=== PATIENT | female | born 1980 | race Caucasian/White ===

== ENCOUNTER 2024-10-13 14:13 | Emergency (ER) | payer BC, OTHER ==
--- OUTSIDE RECORDS SUMMARY | 2024-10-13 14:17 | XMS REPORT | Continuity of Care Document ---
Author Name Unknown Address [address] [facility] [address] [place] [address] [facility] thconnect Address [address] [facility] [place] [address] Care Team Providers Care International Manager Name Role Phone PAUL DE LA CRUZ Primary Care Physician Unavailab NETTA Garcia Attending Clinician Unavailable NETTA DAMON Attending Clinician Unavailable LEANDRA PRECIADO Attending Clinician Unavailable LEANDRA PRECIADO Attending Clinician Unavailable PAUL DE LA CRUZ Attending Clinician Unavailable Leyla ARCHER Attending Clinician Unavailable Leyla ARCHER Attending Clinician Unavailable Leyla Bird Attending Clinician [phone] KEYANA ELDRIDGE Attending Clinician Unavailable Nurse, [facility] Attending Clinician Un available Unknown, Attending Attending Clinician Unavailab Keyana Holm MD Attending Clinician [phone] DEMI QUIROZ Attending Clinician Unavailable Demi Quiroz PA-C Attending Clinician Unknown, Attending Attending Clinician Unavailab LASHONDA Mcqueen Attending Clinician Unavailable 2, [facility] Attending Clinician Unavailable Lashonda Galarza MD Attending Clinician [phone] Doctor Unassigned, [place] Attending Clinician U navailable [email or web address] Attending Clinician UnavailILA Lombardo Attending Clinician UnavailLUIS A Garcia Attending Clinician Unavailable Mandie Stewart MA Attending Clinician Unavailabl e LAB90 Attending Clinician Unavailable USAMA VELASQUEZ Attending Clinician Unavailcandi e [email or web address] Admitting Clinician UnavailLEANDRA Lara Admitting Clinician Unavailable Payers Payer Name Policy Type Policy Number Effective Date Expirati on Date Source [facility] [id number] 2024 00:00:00 [facility] [id number] 2024 00:00:00 [facility] [id number] 2023 00:00:00 BC[employer] 2 [id number] 2022 00:00:00 Problems Condition Name Condition Details Condition Category Status Onset Date Resolution Date Last Treatment Date Treating Clinician Comments Source ADHD (attention deficit hyperactiv ity disorder), combined type ADHD (attention deficit hyperactiv ity disorder), combined type Disease Active 2022-08 00:00: 00 [facility] Generalize d anxiety disorder Generalize d anxiety disorder Disease Active 2022-08 00:00: 00 [facility] 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) Disease Active 2022-08 00:00: 00 [facility] Adjustment insomnia Adjustment insomnia Disease Active 2022-08 00:00: 00 [facility] Bilateral lower extremity edema Bilateral lower extremity edema Disease Active 01-23 00:00: 00 [facility] BMI 40.0-44.9, adult BMI 40.0-44.9, adult Disease Active 01-23 00:00: 00 [facility] Family history of cardiac disorder in father Family history of cardiac disorder in father Disease Active 01-23 00:00: 00 [facility] Primary hypertensi on Primary hypertensi on Disease Active 01-23 00:00: 00 [facility] Urinary incontinen ce, unspecifie d type Urinary incontinen ce, unspecifie d type Disease Active 04-01 00:00: 00 [facility] Perimenopa usal vasomotor symptoms Perimenopa usal vasomotor symptoms Disease Active 04-01 00:00: 00 [facility] Dysmenorrh ea Dysmenorrh ea Disease Active 04-01 00:00: 00 [facility] Allergies, Adverse Reactions, Alerts Allergy Name Allergy Type Status Severity Reaction(s) Onset Date Inactive Date Treating Clinician Comments Source Predniso ne Propensi ty to adverse reaction s to drug Active 01-20 00:00: 00 ORAL STEROIDS ONLY, SKIN CRAWLING, COLD AND HOT, ANXIOUS INJECTABL ES ARE FINE Ashley Kay - Externa l PREDNISO NE DRUG INGREDI Active Med Unknown-Cmnt 01-20 00:00: 00 [facility] Predniso ne Propensi ty to adverse reaction s Active Unknown - See comments 01-20 00:00: 00 ORAL STEROIDS ONLY, SKIN CRAWLING, COLD AND HOT, ANXIOUS INJECTABL ES ARE FINE [facility] NO KNOWN ALLERGIE S Drug Class Active [facility] Social History Social Habit Start Date Stop Date Quantity Comments Source History SDOH Alcohol Frequency [facility] History SDOH Alcohol Std Drinks [facility] History SDOH Alcohol Binge [facility] Gender identity [facility] Alcoholic beverage intake 2024-05-01 00:00:00 2024-05-01 00:00:00 Current drinker of alcohol (finding) [facility] History of Social function 2024-05-01 00:00:00 2024-05-01 00:00:00 [facility] Tobacco use and exposure 2024-02-27 00:00:00 2024-02-27 00:00:00 Smokeless tobacco non-user [facility] Alcohol intake 2023-07-20 00:00:00 2023-07-20 00:00:00 Current drinker of alcohol (finding) Ashley Bailey External Tobacco Comment 2023-01-20 00:00:00 2023-01-20 00:00:00 Smoked during college. No longer Ashley Bailey External Alcohol Comment 2023-01-20 00:00:00 2023-01-20 00:00:00 socially Ashley Bailey External Exposure to SARS-CoV-2 (event) 2022-03-22 00:00:00 2022-04-01 08:33:00 Not sure [facility] History of tobacco use 2003-08-14 00:00:00 Cigarette Smoker [facility] Sex Assigned At 1980 00:00:00 1980 00:00:00 Ashley Kay - External Smoking Status Start Date Stop Date Source Ex-smoker 2024-02-27 00:00:00 2024-02-27 00:00:00 [facility] Medications Ordered Medication Name Filled Medication Name Start Date Stop Date Current Medication? Ordering Clinician Indication Dosage Frequency Signature (SIG) Comments Components Source dextroamphe tamine-amph etamine (MYDAYIS) 25 mg CT24 05-01 17:55: 21 Yes Take by mouth. [facility] chlorhexidi ne (PERIDEX) 0.12 % mouthwash 05-01 00:00: 00 Yes [id number] 15mL Swish and spit out 15 mL in the morning and 15 mL in the evening. [facility] amoxicillin -clavulanat e (AUGMENTIN) 875-125 mg per tablet 02-26 00:00: 00 03-06 04:59 :00 No [id number] 09004 1{tbl} Take 1 tablet by mouth in the morning and 1 tablet in the evening. Do all this for 7 days. [facility] fluconazole (DIFLUCAN) 150 mg tablet 02-26 00:00: 00 02-27 04:59 :00 No [id number] 150mg Take 1 tablet by mouth once now for 1 dose. [facility] methylpheni date HCl (CONCERTA) 18 mg 24 hr tablet 2022-08-15 00:00: 00 Yes [id number] 18mg Take 1 tablet by mouth every morning. [facility] busPIRone 5 mg tablet 2022-08 2-14 00:00: 00 Yes [id number] 5mg Take 1 tablet by mouth in the morning and 1 tablet in the evening. [facility] MOUNJARO 12.5 mg/0.5 mL PnIj 2022-08 2-05 00:00: 00 Yes 12.5mg inject 12.5 mg under the skin weekly. [facility] Oseltamivir Phosphate 75 MG oral Capsule 2022-08 1-10 00:00: 00 07-20 00:00 :00 No 75mg Take 1 capsule (75 mg total) by mouth 2 times daily. Ashley reynaga Mounjaro 10 MG/0.5ML subcutaneou s Solution Pen-injecto r 2022-08 1-03 00:00: 00 07-20 00:00 :00 No INJECT 1 INJECTION INTO THE SKIN ONCE A WEEK FOR 4 WEEKS Ashley reynaga hydroCHLORO thiazide 50 mg tablet 2022-08 005 00:00: 00 Yes 50mg Take 1 tablet by mouth in the morning. [facility] MOUNJARO 7.5 mg/0.5 mL PnIj 9-14 00:00: 00 07-27 00:00 :00 No [facility] Mounjaro 5 MG/0.5ML subcutaneou s Solution Pen-injecto r 8-23 00:00: 00 07-20 00:00 :00 No Ashley reynaga hydroCHLORO thiazide 50 MG oral Tablet 8-22 00:00: 00 05-18 00:00 :00 No [id number] 50mg Take 1 tablet (50 mg total) by mouth daily. Ashley reynaga hydroCHLORO thiazide 50 mg tablet 8-11 00:00: 00 07-27 00:00 :00 No 50mg Take 1 tablet by mouth. [facility] hydroCHLORO thiazide 25 MG oral Tablet 8- 00:00: 00 03-24 00:00 :00 No [id number] 25mg TAKE 1 TABLET (25 MG TOTAL) BY MOUTH DAILY. Ashley reynaga Promethazin e-DM 6.25-15 MG/5ML oral Syrup 7-20 00:00: 00 07-20 00:00 :00 No 5mL Q.25D Take 5 mL by mouth every 6 hours as needed. Ashley reynaga hydroCHLORO thiazide 25 MG oral Tablet 02-21 00:00: 00 Yes [id number] 50mg Take 2 tablets (50 mg total) by mouth daily Ashley reynaga Tirzepatide (Mounjaro) 2.5 MG/0.5ML subcutaneou s Solution Pen-injecto r 02-21 00:00: 00 Yes [id number] 2.5mg Inject 0.5 mL (2.5 mg total) into the skin once a week Ashley reynaga OZEMPIC (0.25 or 0.5 mg/dose) 2 mg/3 mL SQ Solution Pen-Injecto r 02-21 00:00: 00 02-21 00:00 :00 No [id number] .25mg Inject 0.25 mg into the skin once a week Ashley reynaga hydroCHLORO thiazide 25 MG oral Tablet 02-17 00:00: 00 02-21 00:00 :00 No [id number] 25mg TAKE 1 TABLET (25 MG TOTAL) BY MOUTH DAILY. Ashley reynaga hydroCHLORO thiazide 25 MG oral Tablet 01-23 00:00: 00 Yes [id number] 25mg Take 1 tablet (25 mg total) by mouth daily Ashley reynaga hydroCHLORO thiazide 12.5 MG oral Capsule 12-13 00:00: 00 01-23 00:00 :00 No 12.5mg Take 1 capsule (12.5 mg total) by mouth daily Ashley reynaga Triamcinolo ne Acetonide 0.1 % apply externally Lotion 12-13 00:00: 00 01-23 00:00 :00 No APPLY (TOPICAL) 2 TIMES PER DAY Aslhey reynaga Valacyclovi r HCl 1 g oral Tablet 12-13 00:00: 00 01-23 00:00 :00 No TAKE 1 TABLET BY MOUTH THREE TIMES A DAY FOR 7 DAYS Ashley Kay - Daniela l ondansetron 4 mg tablet 12-09 00:00: 00 04-01 00:00 :00 No TAKE 1-2 TABLETS BY MOUTH EVERY 8 HOURS [facility] oseltamivir 75 mg capsule 12-09 00:00: 00 04-01 00:00 :00 No 75mg Take 75 mg by mouth 2 (two) times daily. [facility] spironolact one-hydroch lorothiazid e 25-25 mg per tablet 4-11 00:00: 00 07-27 00:00 :00 No TAKE 1 TABLET BY MOUTH EVERY MORNING FOR 30 DAYS [facility] fluticasone propionate 50 mcg/actuati on nasal spray 10-19 00:00: 00 Yes 2 SPRAYS EACH SIDE DAILY FOR NASAL DRAINAGE AND ALLERGIES [facility] Immunizations Ordered Immunization Name Filled Immunization Name Date Status Comments Source SARS-COV-2 COVID-19 MODERNA 12+ YRS VACCINE 2020-11-11 00:00:00 Completed [facility] SARS-COV-2 COVID-19 MODERNA 12+ YRS VACCINE 2020-11-11 00:00:00 Completed [facility] SARS-COV-2 COVID-19 MODERNA 12+ YRS VACCINE 2020-11-11 00:00:00 Completed [facility] SARS-COV-2 COVID-19 MODERNA VACCINE 2020-11-11 00:00:00 Completed [facility] SARS-COV-2 COVID-19 MODERNA 12+ YRS VACCINE 2020-10-14 00:00:00 Completed [facility] SARS-COV-2 COVID-19 MODERNA 12+ YRS VACCINE 2020-10-14 00:00:00 Completed [facility] SARS-COV-2 COVID-19 MODERNA VACCINE 2020-10-14 00:00:00 Completed [facility] SARS-COV-2 COVID-19 MODERNA 12+ YRS VACCINE 2020-10-14 00:00:00 Completed [facility] SARS-COV-2 COVID-19 MODERNA 12+ YRS VACCINE Unknown Completed [facility] SARS-COV-2 COVID-19 MODERNA 12+ YRS VACCINE Unknown Completed [facility] SARS-COV-2 COVID-19 MODERNA 12+ YRS VACCINE Unknown Completed [facility] SARS-COV-2 COVID-19 MODERNA 12+ YRS VACCINE Unknown Completed [facility] SARS-COV-2 COVID-19 MODERNA 12+ YRS VACCINE Unknown Completed [facility] SARS-COV-2 COVID-19 MODERNA 12+ YRS VACCINE Unknown Completed [facility] SARS-COV-2 COVID-19 MODERNA 12+ YRS VACCINE Unknown Completed [facility] SARS-COV-2 COVID-19 MODERNA 12+ YRS VACCINE Unknown Completed [facility] Vital Signs Vital Name Observation Time Observation Value Comments S ource Systolic blood pressure 2024-05-01 23:41:00 133 mm[Hg] [facility] Diastolic blood pressure 2024-05-01 23:41:00 94 mm[Hg] [facility] Heart rate 2024-05-01 23:41:00 87 /min [facility] Body temperature 2024-05-01 23:41:00 37.5 Shikha [facility] Respiratory rate 2024-05-01 23:41:00 16 /min [facility] Body height 2024-05-01 23:41:00 160 cm [facility] Body weight 2024-05-01 23:41:00 68.493 kg [facility] BMI 2024-05-01 23:41:00 26.75 kg/m2 [facility] Oxygen saturation in Arterial blood by Pulse oximetry 2024-05-01 23:41:00 100 /min [facility] Systolic blood pressure 2024-05-01 22:45:00 123 mm[Hg] [facility] Diastolic blood pressure 2024-05-01 22:45:00 86 mm[Hg] [facility] Heart rate 2024-05-01 22:45:00 84 /min [facility] Body temperature 2024-05-01 22:45:00 36.89 Shikha [facility] Respiratory rate 2024-05-01 22:45:00 19 /min [facility] Body height 2024-05-01 22:45:00 160 cm [facility] Body weight 2024-05-01 22:45:00 70.761 kg [facility] BMI 2024-05-01 22:45:00 27.63 kg/m2 [facility] Oxygen saturation in Arterial blood by Pulse oximetry 2024-05-01 22:45:00 100 /min [facility] Systolic blood pressure 2024-02-27 19:28:00 132 mm[Hg] [facility] Diastolic blood pressure 2024-02-27 19:28:00 79 mm[Hg] [facility] Heart rate 2024-02-27 19:28:00 81 /min [facility] Body temperature 2024-02-27 19:28:00 37.06 Shikha [facility] Respiratory rate 2024-02-27 19:28:00 17 /min [facility] Body weight 2024-02-27 19:28:00 71.215 kg [facility] BMI 2024-02-27 19:28:00 27.81 kg/m2 [facility] Oxygen saturation in Arterial blood by Pulse oximetry 2024-02-27 19:28:00 96 /min [facility] Systolic blood pressure 2023-07-27 14:24:00 122 mm[Hg] [facility] Diastolic blood pressure 2023-07-27 14:24:00 86 mm[Hg] [facility] Heart rate 2023-07-27 14:24:00 76 /min [facility] Body temperature 2023-07-27 14:24:00 36 Shikha [facility] Body height 2023-07-27 14:24:00 160 cm [facility] weight 2023-07-27 14:24:00 90.357 kg [facility] BMI 2023-07-27 14:24:00 35.29 kg/m2 [facility] Oxygen saturation in Arterial blood by Pulse oximetry 2023-07-27 14:24:00 99 /min [facility] Systolic blood pressure 2023-07-20 14:35:00 112 mm[Hg] Ashley Seybo ld - External Diastolic blood pressure 2023-07-20 14:35:00 82 mm[Hg] Ashley Seybo ld - External Heart rate 2023-07-20 14:35:00 83 /min Kelse y Seybold - External Body temperature 2023-07-20 14:35:00 36.5 Shikha Ashley Seybold - External Respiratory rate 2023-07-20 14:35:00 14 /min Ashley Seybold - External Body height 2023-07-20 14:35:00 154.9 cm Elli ey Seybold - External Body weight 2023-07-20 14:35:00 92.987 kg Elli ey Seybold - External BMI 2023-07-20 14:35:00 38.73 kg/m2 Elli ey Seybold - External Systolic blood pressure 2023-05-26 18:14:00 138 mm[Hg] [facility] Diastolic blood pressure 2023-05-26 18:14:00 79 mm[Hg] [facility] Heart rate 2023-05-26 18:14:00 72 /min [facility] Body temperature 2023-05-26 18:14:00 36.78 Shikha [facility] Respiratory rate 2023-05-26 18:14:00 18 /min [facility] Body height 2023-05-26 18:14:00 154.9 cm [facility] Body weight 2023-05-26 18:14:00 98.884 kg [facility] BMI 2023-05-26 18:14:00 41.19 kg/m2 [facility] Systolic blood pressure 2023 13:41:00 128 mm[Hg] Ashley Seybo ld - External Diastolic blood pressure 2023 13:41:00 82 mm[Hg] Ashley Seybo ld - External Heart rate 2023 13:41:00 83 /min Mellose y Seybold - External Body temperature 2023 13:41:00 36.72 Shikha Ashley Seybold - External Respiratory rate 2023 13:41:00 14 /min Ashley Seybold - External Body height 2023 13:41:00 154.9 cm Elli ey Seybold - External Body weight 2023 13:41:00 102.513 kg Elli ey Seybold - External BMI 2023 13:41:00 42.70 kg/m2 Elli ey Seybold - External Systolic blood pressure 2023-03-24 13:34:00 132 mm[Hg] Ashley Seybo ld - External Diastolic blood pressure 2023-03-24 13:34:00 78 mm[Hg] Ashley Seybo ld - External Heart rate 2023-03-24 13:34:00 70 /min Kelse y Seybold - External Body temperature 2023-03-24 13:34:00 36 Shikha Ashley Seybold - External Respiratory rate 2023-03-24 13:34:00 20 /min Ashley Seybold - External Body height 2023-03-24 13:34:00 154.9 cm Elli ey Seybold - External Body weight 2023-03-24 13:34:00 104.872 kg Elli ey Seybold - External BMI 2023-03-24 13:34:00 43.68 kg/m2 Elli ey Seybold - External Oxygen saturation in Arterial blood by Pulse oximetry 2023-03-24 13:34:00 99 /min Ashley Seybo ld - External Systolic blood pressure 2023-02-21 20:46:00 120 mm[Hg] Ashley Seybo ld - External Diastolic blood pressure 2023-02-21 20:46:00 86 mm[Hg] Ashley Seybo ld - External Heart rate 2023-02-21 20:46:00 76 /min Kelse y Seybold - External Body temperature 2023-02-21 20:46:00 36.44 Shikha Ashley Seybold - External Respiratory rate 2023-02-21 20:46:00 16 /min Ashley Seybold - External Body height 2023-02-21 20:46:00 160 cm Elli ey Seybold - External Body weight 2023-02-21 20:46:00 108.682 kg Elli ey Seybold - External BMI 2023-02-21 20:46:00 42.44 kg/m2 Elli dudley Seybold - External Oxygen saturation in Arterial blood by Pulse oximetry 2023-02-21 20:46:00 96 /min Ashley Southo ld - External Heart rate 2023-01-23 20:28:00 88 /min Nicci Southold - External Body temperature 2023-01-23 20:28:00 36.67 Shikha Ashley Solimanybold - External Respiratory rate 2023-01-23 20:28:00 15 /min Ashley Southold - External Body height 2023-01-23 20:28:00 160 cm Elli dudley Seybold - External Body weight 2023-01-23 20:28:00 107.502 kg Elli dudley Seybold - External BMI 2023-01-23 20:28:00 41.98 kg/m2 Elli dudley Seybold - External Systolic blood pressure 2023-01-23 20:28:00 180 mm[Hg] Ashley Southo ld - External Diastolic blood pressure 2023-01-23 20:28:00 96 mm[Hg] Ashley Southo ld - External Systolic blood pressure 2022-04-01 14:04:00 149 mm[Hg] [facility] Diastolic blood pressure 2022-04-01 14:04:00 100 mm[Hg] [facility] Heart rate 2022-04-01 14:03:00 87 /min [facility] Body temperature 2022-04-01 14:03:00 37.11 Shikha [facility] Respiratory rate 2022-04-01 14:03:00 18 /min [facility] Body height 2022-04-01 14:03:00 160 cm [facility] Body weight 2022-04-01 14:03:00 103.738 kg [facility] BMI 2022-04-01 14:03:00 40.51 kg/m2 [facility] Procedures Procedure Date / Time Performed Performing Clinician Source FREE T4 2023-07-27 15:38:00 Lashonda Galarza [facility] THYROID STIMULATING HORMONE 2023-07-27 15:38:00 Lashonda Galarza [facility] COMP. METABOLIC PANEL (69034) 2023-07-27 15:38:00 Geovanni [facility] LIPID PANEL ([id number])(TOTAL CHOLESTEROL, TRIGLYCERIDES, HDL) 2023-07-27 15:38:00 Geovanni [facility] CBC WITH DIFF 2023-07-27 15:38:[address] [facility] HCV ANTIBODY 2023-07-27 15:38:00 Geovanni [facility] VITAMIN D, 25-OH 2023-07-27 15:38:00 Lashonda Galarza [facility] FREE T3 2023-07-27 15:38:00 Geovanni [facility] HIV 1/2 AG-AB WITH REFLEX 2023-07-27 15:38:00 Geovanni [facility] PAIN MANAGEMENT AGREEMENT & INFORMED CONSENT 2023-07-27 06:01:00 Doctor Unassigned, [place] [facility] ASSIGNMENT OF BENEFITS 2023-04-13 16:41:17 Docto r Unassigned, [place] [facility] Encounters Start Date/Time End Date/Time Encounter Type Admission Type Attending Clinicians Care Facility Care Department Encounter ID Source 2024-09-24 09:30:00 2024-09-24 09:30:00 Outpatient NETTA [facility] [id number] [facility] 2024-09-06 10:30:00 2024-09-06 10:30:00 Outpatient LEANDRA VILLALTA VIEN [facility] [id number] [facility] 2024-08-02 10:45:00 2024-08-02 10:45:00 Outpatient LEANDRA VILLALTA VIEN [facility] [id number] [facility] 2024-07-23 09:30:00 2024-07-23 09:30:00 Outpatient NETTA [facility] [id number] [facility] 2024-06-04 00:00:00 2024-06-04 00:00:00 Outpatient PAUL DE LA CRUZ [id number] Ashley Kay 2024-05-31 10:30:00 2024-05-31 10:30:00 Outpatient R LEANDRA PRECIADO VIEN [facility] [id number] [facility] 2024-05-21 09:30:00 2024-05-21 09:30:00 Outpatient [facility]TA [facility] [id number] [facility] 2024-05-01 18:43:00 2024-05-01 19:40:00 Emergency X [facility] [id number] [facility] 2024-05-01 18:43:00 2024-05-01 19:40:00 Emergency Le[facility] Archer K[facility] 1..[id number] [facility] 2024-05-01 17:20:00 2024-05-01 18:30:28 Outpatient KEYANA JOSE [facility] [id number] [facility] 2024-05-01 17:20:00 2024-05-01 18:30:28 Urgent Care Nurse, [facility] Unknown, Attending Keyana Eldridge Nurse, [facility] ..[id number] [facility] 2024-03-12 14:30:00 2024-03-12 14:30:00 Outpatient [facility] [id number] [facility] 2024-02-27 14:00:00 2024-02-27 14:41:23 Outpatient DEMI PIKE [facility] [id number] [facility] 2024-02-27 14:00:00 2024-02-27 14:41:23 Urgent Care Demi Quiroz Unknown, Attending [facility] [id number] [facility] 2024-01-30 11:00:00 2024-01-30 11:00:00 Outpatient [facility] [id number] [facility] 2024-01-09 16:00:00 2024-01-09 16:00:00 Outpatient [facility] [id number] [facility] 2023-12-15 10:30:00 2023-12-15 10:30:00 Outpatient [facility] [id number] [facility] 2023-11-13 10:30:00 2023-11-13 10:30:00 Outpatient [facility] [id number] [facility] 2023-11-01 09:40:00 2023-11-01 09:40:00 Outpatient LASHONDA ROSARIO [facility] [id number] [facility] 2023-10-31 00:00:00 2023-10-31 00:00:00 Outpatient PAUL DE LA CRUZ [id number] Ashley Kay 2023-10-30 11:00:00 2023-10-30 11:00:00 Outpatient [facility] [id number] [facility] 2023-10-09 10:00:00 2023-10-09 10:00:00 Outpatient [facility] [id number] [facility] 2023-10-02 13:30:00 2023-10-02 13:30:00 Outpatient [facility] [id number] [facility] 2023-09-27 00:00:00 2023-09-27 00:00:00 Outpatient PAUL DE LA CRUZ [id number] Ashley Kay 2023-09-11 10:30:00 2023-09-11 10:30:00 [facility] [id number] [facility] 2023-08-21 10:30:00 2023-08-21 10:30:00 Outpatient R NETTA DAMON NETTANYU [facility] [id number] [facility] 2023-08-02 00:00:00 2023-08-02 00:00:00 Outpatient PAUL DE LA CRUZ ASHLEY FERGUSON [id number] [facility] 2023-07-27 09:45:00 2023-07-27 09:45:00 Calculation Clerk Visit 2, Adc Lab Lashonda aGlarza [facility] 1.2.840.114 350.1.13.10 4.2.7.2.686 [id number] [facility] 2023-07-27 08:00:00 2023-07-27 09:31:03 Outpatient R LASHONDA GALARZA [facility] [id number] [facility] 2023-07-27 08:00:00 2023-07-27 09:31:03 Office Visit Lashonda Galarza [facility] 1.2.840.114 350.1.13.10 4.2.7.2.686 [id number] [facility] 2023-07-27 00:00:00 2023-07-27 00:00:00 Orders Only Doctor Unassigned, [place] [facility] 1..840.114 350.1.13.10 4.2.7.2.686 [id number] [facility] 2023-07-20 08:30:00 2023-07-20 08:30:00 Outpatient DOROTHY PAUL ASHLEY FERGUSON [id number] [facility] 2023-07-14 10:30:00 2023-07-14 10:30:00 Outpatient NETTA LOUIS ELISHA [facility] [id number] [facility] 2023-06-19 10:00:00 2023-06-19 10:00:00 Outpatient NETTA L[place]IS ELISHA [facility] [id number] [facility] 2023-06-11 00:00:00 2023-06-11 00:00:00 Outpatient GC_GCBZW_Ka diyala_S PRIV [facility] [id number] [facility] 2023-06-09 00:00:00 2023-06-09 00:00:00 Patient Secure Msg Doctor Unassigned, [place] [facility] 1..840.114 350.1.13.10 4.2.7.2.686 [id number] [facility] 2023-06-02 10:30:00 2023-06-02 10:30:00 Outpatient NETTA L[facility]IS [facility]ISNYU [facility] [id number] [facility] 2023-05-26 13:00:00 2023-05-26 13:45:37 Outpatient LEANDRA VILLALTA [facility] [id number] [facility] 2023-05-26 13:00:00 2023-05-26 13:45:37 Office Visit Leandra Preciado [facility] 1..840.114 350.1.13.10 4.2.7.2.686 [id number] [facility] 2023 08:30:00 2023 08:30:00 Outpatient PAUL DE LA CRUZ [id number] Ashley Kay 2023-05-15 13:00:00 2023-05-15 13:00:00 Outpatient NETTA [facility] [id number] [facility] 2023-05-02 11:30:00 2023-05-02 11:30:00 Outpatient LUIS A THOMAS [facility] [id number] [facility] 2023-04-13 11:46:35 2023-04-13 23:59:00 Outpatient LEANDRA VILLALTA [facility] [id number] [facility] 2023-04-13 11:46:35 2023-04-13 23:59:00 Hospital Encounter Leandra Preciado [facility] 1..840.114 350.1.13.10 4.2.7.2.686 [id number] [facility] 2023-04-13 00:00:00 2023-04-13 00:00:00 Orders Only Doctor Unassigned, [place] [facility] 1..840.114 350.1.13.10 4.2.7.2.686 [id number] [facility] 2023-04-07 08:30:00 2023-04-07 08:30:00 Outpatient Nicole LEANDRA PRECIADO [facility] [id number] [facility] 2023-04-07 00:00:00 2023-04-07 00:00:00 Outpatient Nicole LEANDRA PRECIADO [facility] [id number] [facility] 2023-04-04 00:00:00 2023-04-04 00:00:00 Outpatient PAUL DE LA CRUZ [id number] Ashley Kay 2023-03-31 00:00:00 2023-03-31 00:00:00 Pre Visit Outreach Mandie Stewart ..840.114 350.1.13.10 4.2.7.2.686 [id number] [facility] 2023-03-24 08:30:00 2023-03-24 08:30:00 Outpatient PAUL DE LA CRUZ [id number] Ashley Kay 2023-03-18 00:00:00 2023-03-18 00:00:00 Outpatient PAUL DE LA CRUZ [id number] Ashley Kay 2023-03-13 00:00:00 2023-03-13 00:00:00 Outpatient PAUL DE LA CRUZ ASHLEY [id number] Ashley Kay 2023-02-21 15:30:00 2023-02-21 15:30:00 Outpatient PAUL DE LA CRUZ ASHLEY [id number] Ashley Kay 2023-02-17 00:00:00 2023-02-17 00:00:00 Outpatient PAUL DE LA CRUZ ASHLEY [id number] Ashley Kay 2023-01-24 08:00:00 2023-01-24 08:00:00 Outpatient LAB90 ASHLEY ASHLEY [id number] Ashley Kay 2023-01-23 15:30:00 2023-01-23 15:30:00 Outpatient PAUL DE LA CRUZ ASHLEY [id number] Ashley Kay 2022-07-15 13:00:00 2022-07-15 13:00:00 Outpatient NETTA LOUIS [facility] [id number] [facility] 2022-07-11 00:00:00 2022-07-11 00:00:00 Outpatient LEANDRA VILLALTA [facility] [id number] [facility] 2022-06-27 09:00:00 2022-06-27 09:00:00 Outpatient NETTA LOUIS [facility] [id number] [facility] 2022-06-20 09:15:00 2022-06-20 09:15:00 Outpatient USAMA YOUNG [facility] [id number] [facility] 2022-04-20 00:00:00 2022-04-20 00:00:00 Outpatient LEANDRA VILLALTA [facility] [id number] [facility] 2022-04-01 08:30:00 2022-04-01 09:48:00 Office Visit Leandra Preciado [facility] 1.2.840.114 350.1.13.10 4.2.7.2.686 [id number] [facility] 2022-04-01 08:30:00 2022-04-01 09:48:00 Outpatient LEANDRA VILLALTA [facility] [id number] [facility] 2022-04-01 08:30:00 2022-04-01 09:48:00 Outpatient LEANDRA VILLALTA [facility] [id number] [facility] 2022-04-01 08:30:00 2022-04-01 08:30:00 Outpatient LEANDRA VILLALTA [facility] [id number] [facility] Results Test Description Test Time Test Comments Results Result Co mments Source [facility], [id number] 22:07:29* Test Item Value Reference Range Interpretation Comme [facility] VIT D 25OH (test code = 25721-3) 37 ng/mL 25-80 OLEG (test code = OLEG) Deficiency: <20 ng/mLInsufficiency : 20-24 ng/mLOptimal: 25-80 ng/mL Lab Interpretation (test code = 39316-8) Normal [facility]FREE [id number] 18:10:57* Test Item Value Reference Range Interpretation Comme [facility] FREE T3 (test code = 0207380520) 3.93 pg/mL 2.77-5.27 Lab Interpretation (test cod e = 38244-4) Normal [facility]/2 Ag-Ab with [id number] 17:55:44* Test Item Value Reference Range Interpretation Comme [facility] HIV Semi-quantitative (test code = 84680-7) 0.10 Negative OLEG (test code = OLEG) Non-reactive for HIV-1 antigen and HIV-1/HIV-2 antibodies. ?No laboratory evidence of HIV infection. ?Repeat in 2-4 weeks if acute HIV infection is suspected. [facility] CenterThyroid Stimulating [id number] 17:46:06 * Test Item Value Reference Range Interpretation Comme nts TSH (test code = 4139356198) 1.04 See_Comment [Automated [employer] ge] The system which generated this result transmitted reference range: 0.45 - 4.70 mIU/L. The reference range was not used to interpret this result as normal/abnormal. Lab Interpretation (test code = 56541-0) Normal [facility] [id number] 17:32:39* Test Item Value Reference Range Interpretation Comme nts FREE T4 (test code = 0952202601) 1.17 See_Comment [Automated [employer] ge] The system which generated this result transmitted reference range: 0.78 - 2.20 ng/dL:. The reference range was not used to interpret this result as normal/abnormal. Lab Interpretation (test code = 36925-8) Normal [facility]. Metabolic Panel ([id number])2023-07-27 17:17:55* Test Item Value Reference Range Interpretation Comme nts NA (test code = 5045299112) 136 mmol/L 135-145 K (test code = 3946201632) 3.6 mmol/L 3.5-5.0 CL (test code = 8320615408) 97 mmol/L 98-108 L CO2 TOTAL (test code = 0625380917) 31 mmol/L 23-31 AGAP (test code = 9195093905) 8 2-16 BUN (test code = 4107947694) 16 mg/dL 7-23 GLUCOSE (test code = 4385569447) 94 mg/dL 70-110 CREATININE (test code = 1917229305) 0.67 mg/dL 0.50-1.04 TOTAL BILI (test code = 3948326245) 0.9 mg/dL 0.1-1.1 CALCIUM (test code = 4660052988) 9.5 mg/dL 8.6-10.6 T PROTEIN (test code = 3612389637) 7.5 g/dL 6.3-8.2 ALBUMIN (test code = 7700159893) 4.5 g/dL 3.5-5.0 ALK PHOS (test code = 5124373047) 75 U/L 34-122 ALTv (test code = 1742-6) 15 U/L 5-35 AST(SGOT) (test code = 8147857473) 19 U/L 13-40 eGFR (test code = 15630-5) 110.7 mL/min/1.73m2 CKD-EPI eGFR (2020). Assuming creatinine has been stable day-to-day for at least three months, the eGFR indicates Category G1 (>= 90 mL/min/1.73 m2) Lab Interpretation (test code = 61476-8) Abnormal [facility] CenterLipid Panel (53276)(Total Cholesterol, Triglycerides, HDL)2023-07-27 17:17:55* Test Item Value Reference Range Interpretation Comme nts CHOL (test code = 6814426975) 166 mg/dL 120-200 HDL (test code = 1971005587) 41 mg/dL >=50 L HDLC RATIO (test code = 2990359437) 4.0 <=4.5 TRIG (test code = 9716996215) 56 mg/dL 30-170 LDL CHOL (test code = 81241-2) 114 mg/dL <=160 VLDL (test code = 6478824333) 11 mg/dL 5-60 Lab Interpretation (test cod e = 56566-0) Abnormal [facility] CenterCbc with [id number] 16:43:53* Test Item Value Reference Range Interpretation Comme nts WBC (test code = 6690-2) 9.02 See_Comment [Automated [employer]] The system which generated this result transmitted reference range: 4.30 - 11.10 10*3/?L. The reference range was not used to interpret this result as normal/abnormal. RBC (test code = 789-8) 4.50 See_Comment [Automated [employer]] The system which generated this result transmitted reference range: 3.93 - 5.25 10*6/?L. The reference range was not used to interpret this result as normal/abnormal. HGB (test code = 718-7) 12.8 g/dL 11.6-15.0 HCT (test code = 4544-3) 38.6 % 35.7-45.2 MCV (test code = 787-2) 85.8 fL 80.6-95.5 MCH (test code = 785-6) 28.4 pg 25.9-32.8 MCHC (test code = 786-4) 33.2 g/dL 31.6-35.1 RDW-SD (test code = 18667-6) 41.2 fL 39.0-49.9 RDW-CV (test code = 788-0) 13.2 % 12.0-15.5 PLT (test code = 777-3) 339 See_Comment [Automated messa ge] The system which generated this result transmitted reference range: 166 - 358 10*3/?L. The reference range was not used to interpret this result as normal/abnormal. MPV (test code = 60174-5) 9.5 fL 9.5-12.9 NRBC/100 WBC (test code = 6002567608) 0.0 See_Comment [Automated me ssage] The system which generated this result transmitted reference range: 0.0 - 10.0 /100 WBCs. The reference range was not used to interpret this result as normal/abnormal. NRBC x10^3 (test code = 4382101054) See_Comment [Automated me ssage] The system which generated this result transmitted reference range: 10*3/?L. The reference range was not used to interpret this result as normal/abnormal. GRAN MAT (NEUT) % (test code = 770-8) 69.5 % IMM GRAN % (test code = 4128024730) 0.30 % LYMPH % (test code = 736-9) 20.7 % MONO % (test code = 5905-5) 6.5 % EOS % (test code = 713-8) 2.7 % BASO % (test code = 706-2) 0.3 % GRAN MAT x10^3(ANC) (test code = 6666664647) 6.26 10*3/uL 1.88-7.09 IMM GRAN x10^3 (test code = 6106969818) 0.03 10*3/uL 0.00-0.06 LYMPH x10^3 (test code = 731-0) 1.87 10*3/uL 1.32-3.29 MONO x10^3 (test code = 742-7) 0.59 10*3/uL 0.33-0.92 EOS x10^3 (test code = 711-2) 0.24 10*3/uL 0.03-0.39 BASO x10^3 (test code = 704-7) 0.03 10*3/uL 0.01-0.07 [facility] Notes Date/Time Note Provider Source 2024-05-01 19:38:21 Pt given printed and verbal discharge instructions regarding laceration of tongue, encouraged hydration, Prescriptions provided to preferred pharmacy Pt verbalized understanding of instructions, pt awake alert oriented, resp reg unlabored, skin w/d, color appropriate for race, moves all ext well,pt encouraged to follow up with pcp Advised to seek medical attention for new/prolonged/worsening of symptoms Awake, alert oriented, resp reg unlabored, skin w/d, pt leaving amb with steady gait, in no apparent distress, Roxanne Sauer RN [facility] 2024-05-01 18:41:04 CC: patient presents to the ER with complaints of biting through her tongue while chewing gum. Awake, alert, oriented, resp reg unlabored, skin warm and dry, color appropriate for race, moves all ext without difficulty, amb without assistance. Appears in no distress. Joann Dominguez RN [facility] 2023-03-31 08:11:36 Summary: Pre-Visit Outreach [facility], [facility], and Care Everywhere searched for patient records.No new records found. Class Messenger Message sent to patient with open care gaps. Mammogram Scheduled [facility] 2023-03-24 08:30:00 Formatting of this n ote might be different from the original. Patient here for follow up appt. Claritza Samuel LVN [facility] 2023-02-21 15:49:51 Formatting of this n ote might be different from the original. Patient is here for f/u. Patient was started on medication at last visit for edema. States that swelling in legs has improved, but are still swollen be the end of the day. VSS, medications reconciled. Tamica Eugenio [facility]
[2024-10-13] MEDS ORDERED: FLUORESCEIN SODIUM 1 MG/WRAP ONE (14:27)
[2024-10-13] MEDS ORDERED: TETRACAINE HCL 0.5% 4ML OPTH ONE (14:27)
--- NOTE | 2024-10-13 15:08 | EDPHYS ---
Physician Documentation [facility] Name: Romy Dixon Age: 44 yrs Sex: Female : 1980 Arrival Date: 10/13/2024 Time: 14:13 Bed 9 Private MD: ED Physician Abiodun Guillen HPI: 10/13 16:37 This 44 yrs old Female presents to ER via Ambulatory with complaints of Eye Swelling, sb4 Drainage From Eye. 16:46 Patient states that she noticed a "blister "in her left eye yesterday. She states that sb4 it spontaneously popped. Denies any pain but does report a foreign body sensation. Is concerned because she has a history of HSV1 and was told on a TeleDoc appointment that it could have migrated into her eye. Denies any contacts or glasses usage. Denies any changes in her vision. 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 - Infectious Disease History:: Denies. - Social history:: Smoking status: unknown. ROS: 16:46 Constitutional: Negative for fever, chills, and weight loss, sb4 16:46 Eyes: Positive for foreign body sensation, tearing, 16:46 All other systems are negative, Exam: 16:46 Visual Acuity: Visual acuity is within normal limits. sb4 16:46 Constitutional: This is a well developed, well nourished patient who is awake, alert, and in no acute distress. Head/Face: Normocephalic, atraumatic. Eyes: Extra-ocular motions intact. Periorbital areas with no swelling, redness, or edema. ENT: Mucous membranes moist. Respiratory: No increased work of breathing, no retractions or nasal flaring. Skin: Warm, dry with normal turgor. Normal color with no rashes, no lesions, and no evidence of cellulitis. 16:46 Eyes: Conjunctiva: Corneas: abrasion, is not appreciated, foreign body, is not appreciated, a fluorescein strip employed to appreciate the findings, subtle dendric lesion 3 oclock, Vital Signs: 14:19 BP 133 / 76; Pulse 74; Resp 16; Temp 97.6; Pulse Ox 100% on R/A; iw MDM: 14:19 Medical Screening Exam initiated sb4 16:50 Data reviewed: vital signs, nurses notes, and as a result, I will discharge patient. sb4 Counseling: I had a detailed discussion with the patient and/or guardian regarding the historical points, exam findings, and any diagnostic results supporting the discharge/admit diagnosis, the need for outpatient follow up, an opthalmologist, to return to the emergency department if symptoms worsen or persist or if there are any questions or concerns that arise at home. Administered Medications: 15:07 Drug: Fluorescein Ophthalmic Strip 1 strip Ophthalmic once {Note: Administered by PA. Kavya} Route: Ophthalmic; Site: left eye; 15:08 Follow up: Response: No adverse reaction me1 15:07 Drug: Tetracaine Ophthalmic Drops 0.5 % 1 drops Ophthalmic once {Note: Administered by PA. Kavya} Route: Ophthalmic; Site: left eye; 15:08 Follow up: Response: No adverse reaction [facility] Disposition: 18:49 Co-signature as Attending Physician, Abiodun Guillen MD I reviewed the patient's care rt provided by the Advanced Practice Provider and agree with the diagnosis and treatment plan. Disposition Summary: 10/13/24 15:08 Discharge Ordered Notes: Location: Home sb4 Problem: new sb4 Symptoms: have improved sb4 Condition: Stable sb4 Diagnosis - Zoster keratitis sb4 Followup: sb4 - With: Nilo Lewis MD - When: 1 week - Reason: Recheck today's complaints, Re-evaluation by your physician Discharge Instructions: - Discharge Summary Sheet sb4 - Herpes Keratitis sb4 Forms: - Patient Portal Instructions sb4 - Leadership Thank You Letter sb4 Prescriptions: - Valtrex 500 mg Oral tablet - take 1 tablet ORAL route 3 times per day; 21 tablet; Refills: 0, Product sb4 Selection Permitted - ganciclovir 0.15 % Ophthalmic gel - instill 1 drop OPHTHALMIC route 3 times per day for 7 days; 1 Applicator; sb4 Refills: 0, Product Selection Permitted Signatures: Savannah Cheung RN RN iw Brown, Sophia, PA-C PA-C sb4 Abiodun Guillen MD MD rt Jessica Thompson, RN RN me1
--- NOTE | 2024-10-13 15:08 | ER ---
Nurse's Notes [facility] Name: Romy Dixon Age: 44 yrs Sex: Female : 1980 Arrival Date: 10/13/2024 Time: 14:13 Bed 9 Private MD: Diagnosis: Zoster keratitis Presentation: 10/13 14:19 Chief complaint: Patient states: blister in corner of left eye popped up yesterday . I iw have a cold sore outbreak. Coronavirus screen: At this time, the client does not indicate any symptoms associated with coronavirus-19. Ebola Screen: No symptoms or risks identified at this time. Initial Sepsis Screen: Does the patient meet any 2 criteria? No. Patient's initial sepsis screen is negative. Does the patient have a suspected source of infection? No. Patient's initial sepsis screen is negative. Risk Assessment: Do you want to hurt yourself or someone else? Patient reports no desire to harm self or others. Onset of symptoms was October 12, 2024. 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 - Infectious Disease History:: Denies. - Social history:: Smoking status: unknown. Screenin:25 [facility] ED Fall Risk Assessment (Adult) History of falling in the last 3 months, iw including since admission No falls in past 3 months (0 pts) Confusion or Disorientation No (0 pts) Intoxicated or Sedated No (0 pts) Impaired Gait No (0 pts) Mobility Assist Device Used No (0 pt) Altered Elimination No (0 pt) Score/Fall Risk Level 0 - 2 = Low Risk Oriented to surroundings. Abuse screen: Denies injuries from another. Nutritional screening: No deficits noted. On. Tuberculosis screening: No symptoms or risk factors identified. Assessment: 14:24 General: Appears in no apparent distress. Behavior is calm, cooperative. Pain: Denies iw pain. Neuro: Level of Consciousness is awake, alert, obeys commands, Oriented to person, place, time, situation, Moves all extremities. Full function. Cardiovascular: Patient's skin is warm and dry. Respiratory: Respiratory effort is even, unlabored, Respiratory pattern is regular, symmetrical. EENT: Eyes are tearing on left outer canthus and outer aspect of conjuctiva of left eye Sclera/Cornea are reddened in outer aspect of conjuctiva of left eye. Derm: Skin is intact, is healthy with good turgor. Musculoskeletal: Range of motion: intact in all extremities. Vital Signs: 14:19 BP 133 / 76; Pulse 74; Resp 16; Temp 97.6; Pulse Ox 100% on R/A; iw ED Course: 14:16 Patient arrived in ED. im 14:19 Marla Prasad PA-C is PHCP. sb4 14:19 Abiodun Guillen MD is Attending Physician. sb4 14:21 Triage completed. iw 14:22 Arm band placed on. iw 14:40 Jessica Thompson, BRIA is Primary Nurse. me1 15:07 Nilo Lewis MD is Referral Physician. sb4 15:08 Patient has correct armband on for positive identification. Bed in low position. Call me1 light in reach. Side rails up X 1. Provided Education on: POC. Verbalized understanding.. 15:08 No provider procedures requiring assistance completed. Patient did not have IV access me1 during this emergency room visit. Administered Medications: 15:07 Drug: Fluorescein Ophthalmic Strip 1 strip Ophthalmic once {Note: Administered by [facility] PA. Taylor} Route: Ophthalmic; Site: left eye; 15:08 Follow up: Response: No adverse reaction me1 15:07 Drug: Tetracaine Ophthalmic Drops 0.5 % 1 drops Ophthalmic once {Note: Administered by [facility] PA. Taylor} Route: Ophthalmic; Site: left eye; 15:08 Follow up: Response: No adverse reaction ms1 Medication: 14:25 VIS not applicable for this client. iw Outcome: 15:08 Discharge ordered by . sb4 15:21 Discharged to home ambulatory, me1 15:21 Condition: stable 15:21 Discharge instructions given to patient, Instructed on discharge instructions, follow up and referral plans. medication usage, Demonstrated understanding of instructions, follow-up care, medications, Prescriptions given X 2, 15:21 Patient left the ED. me1 Signatures: Savannah Cheung, RN RN iw Marla Prasad PA-C [place] sb4 Juliana Banuelos Michelle, RN RN me1 Corrections: (The following items were deleted from the chart) 14:41 14:19 Chief complaint: Patient states: blister in corner of left eye popped up me1 yesterday . I have a cold sore outbreak iw 15:07 15:07 Fluorescein Ophthalmic Strip 1 strip Ophthalmic in left eye me1 me1
[2024-10-13 16:21] VITALS: BP 133/76; TEMP 97.6; O2SAT 100
== END 2024-10-13 15:21 | disposition home or self-care (01) ==
LOC: ER 14:13
DX: B02.33 Zoster keratitis (principal)
CPT/HCPCS: 99283